=== PATIENT | male | born 1985 | race Caucasian/White ===

== ENCOUNTER → 2018-06-11 | Outpatient (CLI) | payer BC ==
[2015-10-30 08:44] VITALS: BMI 22.4
[~2018-06-11] MED LIST: CHL25 PO; ESCI20TA38 PO; MAGN400T23 PO; MELA3TAB31 PO; MULT-1379 PO; NIC10R INH; PROM-110 PO; [UNRECOGNIZED DRUG - REMARK]
[2018-06-11 17:08] LABS: PLATELET COUNT, AUTOMATED 247 K/uL (150-450)
== END ==
LOC: LAB 16:10
PROVIDERS: ATTEND Emergency Medicine
DX: F10.20 Alcohol dependence, uncomplicated (principal)
CPT/HCPCS: 36415; 80305; 80320; 82040; 82247; 82306; 82310; 82374; 82435; 82565; 82607; 82947; 83735; 84075; 84132; 84155; 84295; 84443; 84450; 84460; 84520; 85025

== ENCOUNTER 2018-09-03 14:55 | Emergency (ER) | payer BC ==
[2015-10-30 08:44] VITALS: Wt 61.7 kg
[~2018-09-03 14:55] MED LIST changes: -CHOL10005 PO; -MULT1CAP59 PO
--- NOTE | 2018-09-03 15:09 | ER Report ---
History and Physical Time Seen By MD: 15:09 HPI/ROS CHIEF COMPLAINT: Seizure HISTORY OF PRESENT ILLNESS: Patient is a 33-year-old male with history of alcoholism here with a 1 minute seizure while at school. Patient denies alcohol abuse reporting that his last alcoholic beverage was over the weekend. Patient reportedly supposed be taking Antabuse. Seizure lasted for approximately 1 minute however he did have a postictal phase and continues to have some confusion regarding the events leading up to the seizure. Patient is afebrile, hemodynamically stable, no nuchal rigidity or meningeal signs present. REVIEW OF SYSTEMS: Constitutional: No fever, no chills. Eyes: No discharge. ENT: No sore throat. Cardiovascular: No chest pain, no palpitations. Respiratory: No cough, no shortness of breath. Gastrointestinal: No abdominal pain, no vomiting. Genitourinary: No hematuria. Musculoskeletal: No back pain. Skin: No rashes. Neurological: + headache and mild confusion. Allergies: Coded Allergies: No Known Drug Allergies (Unverified , 09/03/18) Home Meds Active Scripts Disulfiram (DISULFIRAM) 250 Mg Tablet, 2 TAB PO DAILY, #60 TAB Take 2 tabs daily in the morning for 2 weeks , then 1 daily.Abstain from alcohol for 12 hours before starting. Prov:MYRNA SCHNEIDER MD 07/17/18 Escitalopram Oxalate (LEXAPRO) 20 Mg Tablet, 10 MG PO QDAY, #90 TAB 3 Refills Prov:MYRNA SCHNEIDER MD 07/17/18 Trazodone Hcl (TRAZODONE HCL) 50 Mg Tablet, 0.5-1 MG PO QHS, #30 TAB Prov:MYRNA SCHNEIDER MD 06/27/18 Reported Medications Multivitamin (MULTIVITAMINS) 1 Each Capsule, 1 EACH PO QDAY, CAPSULE 09/03/18 Cholecalciferol (Vitamin D3) (VITAMIN D3) 1,000 Unit Tablet, PO QAM, TAB 09/03/18 Hx Smoking: Yes Smoking Status: Current: Every Day Smoker Exposure to Second Hand Smoke?: Yes Hx Substance Use Disorder: Yes Hx Alcohol Use: Yes Constitutional Vital Sign - Last 24 Hours 09/03/18 09/03/18 09/03/18 09/03/18 14:58 15:00 15:10 15:25 Temp 99.5 Pulse 123 111 113 Resp 20 23 14 B/P (MAP) 136/95 150/80 (103) Pulse Ox 90 88 88 O2 Delivery Room Air 09/03/18 09/03/18 09/03/18 09/03/18 15:30 15:37 15:40 15:55 Pulse 96 102 Resp 19 20 B/P (MAP) 138/81 (100) Pulse Ox 95 98 O2 Flow Rate 2.0 09/03/18 09/03/18 09/03/18 09/03/18 16:00 16:10 16:15 16:45 Pulse 106 101 98 Resp 18 16 19 B/P (MAP) 128/74 (92) Pulse Ox 95 96 100 09/03/18 09/03/18 09/03/18 09/03/18 17:00 17:15 17:30 17:45 Pulse 95 90 89 92 Resp 16 24 17 15 B/P (MAP) 126/78 (94) 137/80 (99) Pulse Ox 98 100 98 99 09/03/18 09/03/18 09/03/18 09/03/18 18:00 18:05 18:20 18:30 Pulse 91 94 87 Resp 13 13 17 B/P (MAP) 134/78 (96) 138/94 (109) Pulse Ox 98 100 99 09/03/18 09/03/18 09/03/18 09/03/18 18:35 18:50 19:00 19:05 Pulse 102 109 90 Resp 33 24 24 B/P (MAP) 142/89 (106) Pulse Ox 88 85 98 09/03/18 09/03/18 09/03/18 19:20 19:30 19:35 Pulse 89 97 Resp 22 21 B/P (MAP) 138/90 (106) Pulse Ox 97 88 Intake and Output 09/03/18 09/03/18 09/04/18 15:00 23:00 07:00 Intake Total 3000 ml Balance 3000 ml Physical Exam General Appearance: The patient is alert, has no immediate need for airway protection and no signs of toxicity. Uncomfortable appearing, mild confusion Eyes: Pupils equal and round no pallor or injection. ENT, Mouth: Mucous membranes are moist. Respiratory: There are no retractions, lungs are clear to auscultation. Cardiovascular: Regular but tachycardic Gastrointestinal: Abdomen is soft and non tender, no masses, bowel sounds normal. Neurological: Mild confusion, moving all extremities spontaneously, no focal neurological deficits on examination, reflexes intact in all extremities Skin: Warm and dry, no rashes. Musculoskeletal: Neck is supple non tender. Extremities are nontender, nonswollen and have full range of motion. DIFFERENTIAL DIAGNOSIS: After history and physical exam differential diagnosis was considered for a seizure including but not limited to electrolyte abnormali ty, alcohol withdrawal, medication noncompliance, head injury, and breakthrough seizure. Medical Decision Making Data Points Result Diagram: 09/03/18 1435 09/03/18 1435 Laboratory Hematology Test 09/03/18 14:35 09/03/18 16:04 09/03/18 16:06 Red Blood Count 4.67 M/uL (4.00-5.60) Mean Corpuscular Volume 105.0 fL (80.0-96.0) Mean Corpuscular Hemoglobin 33.8 pg (26.0-33.0) Mean Corpuscular Hemoglobin Concent 32.2 g/dL (32.0-36.0) Red Cell Distribution Width 15.0 % (11.5-14.5) Mean Platelet Volume 8.4 fL (7.2-11.1) Neutrophils (%) (Auto) 50.5 % (39.4-72.5) Lymphocytes (%) (Auto) 36.9 % (17.6-49.6) Monocytes (%) (Auto) 10.4 % (4.1-12.4) Eosinophils (%) (Auto) 0.8 % (0.4-6.7) Basophils (%) (Auto) 1.4 % (0.3-1.4) Nucleated RBC Relative Count (auto) 0.0 /100WBC Neutrophils # (Auto) 4.8 K/uL (2.0-7.4) Lymphocytes # (Auto) 3.5 K/uL (1.3-3.6) Monocytes # (Auto) 1.0 K/uL (0.3-1.0) Eosinophils # (Auto) 0.1 K/uL (0.0-0.5) Basophils # (Auto) 0.1 K/uL (0.0-0.1) Nucleated RBC Absolute Count (auto) 0.00 K/uL Sodium Level 141 mmol/L (137-145) Potassium Level 3.4 mmol/L (3.5-5.0) Chloride Level 96 mmol/L (98-107) Carbon Dioxide Level 10 mmol/L (22-30) Blood Urea Nitrogen 6 mg/dl (9-21) Creatinine 1.10 mg/dl (0.66-1.25) Glomerular Filtration Rate Calc > 60.0 Random Glucose 132 mg/dl (75-110) Calcium Level 9.4 mg/dl (8.4-10.2) Magnesium Level 1.7 mg/dl (1.7-2.2) Total Bilirubin 0.5 mg/dl (0.2-1.3) Aspartate Amino Transf (AST/SGOT) 245 U/L (0-35) Alanine Aminotransferase (ALT/SGPT) 226 U/L (0-56) Alkaline Phosphatase 82 U/L (0-126) Total Protein 9.2 g/dl (6.3-8.2) Albumin 5.8 g/dl (3.5-5.0) Serum Alcohol 40 mg/dl Urine Opiates Screen Negative Urine Barbiturates Screen Negative Ur Tricyclic Antidepressants Screen Negative Urine Phencyclidine Screen Negative Urine Amphetamines Screen Negative Urine Benzodiazepines Screen Negative Urine Cocaine Screen Negative Urine Cannabinoids Screen Negative Blood Gas Patient Temperature 99.5 DEGREES Venous Blood pH 7.29 (7.31-7.41) Venous Blood Partial Pressure CO2 35 mmHg Venous Blood Partial Pressure O2 49 mmHg Venous Blood HCO3 17 mmol/L Venous Blood Oxygen Saturation 79 % Venous Blood Base Excess -10 mmol/L Oxygen Liters/Minute 2l Lactate 10.5 mmol/L (0.7-2.1) Total Creatine Kinase 350 U/L (55-170) Chemistry Test 09/03/18 14:35 09/03/18 16:04 09/03/18 16:06 White Blood Count 9.5 k/uL (4.5-11.0) Red Blood Count 4.67 M/uL (4.00-5.60) Hemoglobin 15.8 g/dL (14.0-18.0) Hematocrit 49.0 % (42.0-52.0) Mean Corpuscular Volume 105.0 fL (80.0-96.0) Mean Corpuscular Hemoglobin 33.8 pg (26.0-33.0) Mean Corpuscular Hemoglobin Concent 32.2 g/dL (32.0-36.0) Red Cell Distribution Width 15.0 % (11.5-14.5) Platelet Count 311 K/uL (150-450) Mean Platelet Volume 8.4 fL (7.2-11.1) Neutrophils (%) (Auto) 50.5 % (39.4-72.5) Lymphocytes (%) (Auto) 36.9 % (17.6-49.6) Monocytes (%) (Auto) 10.4 % (4.1-12.4) Eosinophils (%) (Auto) 0.8 % (0.4-6.7) Basophils (%) (Auto) 1.4 % (0.3-1.4) Nucleated RBC Relative Count (auto) 0.0 /100WBC Neutrophils # (Auto) 4.8 K/uL (2.0-7.4) Lymphocytes # (Auto) 3.5 K/uL (1.3-3.6) Monocytes # (Auto) 1.0 K/uL (0.3-1.0) Eosinophils # (Auto) 0.1 K/uL (0.0-0.5) Basophils # (Auto) 0.1 K/uL (0.0-0.1) Nucleated RBC Absolute Count (auto) 0.00 K/uL Glomerular Filtration Rate Calc > 60.0 Calcium Level 9.4 mg/dl (8.4-10.2) Magnesium Level 1.7 mg/dl (1.7-2.2) Total Bilirubin 0.5 mg/dl (0.2-1.3) Aspartate Amino Transf (AST/SGOT) 245 U/L (0-35) Alanine Aminotransferase (ALT/SGPT) 226 U/L (0-56) Alkaline Phosphatase 82 U/L (0-126) Total Protein 9.2 g/dl (6.3-8.2) Albumin 5.8 g/dl (3.5-5.0) Serum Alcohol 40 mg/dl Urine Opiates Screen Negative Urine Barbiturates Screen Negative Ur Tricyclic Antidepressants Screen Negative Urine Phencyclidine Screen Negative Urine Amphetamines Screen Negative Urine Benzodiazepines Screen Negative Urine Cocaine Screen Negative Urine Cannabinoids Screen Negative Blood Gas Patient Temperature 99.5 DEGREES Venous Blood pH 7.29 (7.31-7.41) Venous Blood Partial Pressure CO2 35 mmHg Venous Blood Partial Pressure O2 49 mmHg Venous Blood HCO3 17 mmol/L Venous Blood Oxygen Saturation 79 % Venous Blood Base Excess -10 mmol/L Oxygen Liters/Minute 2l Lactate 10.5 mmol/L (0.7-2.1) Total Creatine Kinase 350 U/L (55-170) Toxicology Test 09/03/18 14:35 09/03/18 16:04 Serum Alcohol 40 mg/dl Urine Opiates Screen Negative Urine Barbiturates Screen Negative Ur Tricyclic Antidepressants Screen Negative Urine Phencyclidine Screen Negative Urine Amphetamines Screen Negative Urine Benzodiazepines Screen Negative Urine Cocaine Screen Negative Urine Cannabinoids Screen Negative EKG/Imaging EKG Interpretation PATIENT NAME: BEE VARELA : [id number] MR: [id number] V: [id number] EXAM DATE: ORDERING PHYSICIAN: NOE RODRIGUEZ TECHNOLOGIST: TERRY Young Reason : NEURO Blood Pressure : / mmHG Vent. Rate : 102 BPM Atrial Rate : 102 BPM P-R Int : 136 ms QRS Dur : 078 ms QT Int : 350 ms P-R-T Axes : 069 088 057 degrees QTc Int : 456 ms Sinus tachycardia Otherwise normal ECG When compared with ECG of 30-APR-2015 18:33, Relatively unchanged Confirmed by VITALY ASENCIO ([id number]) on 09/03/2018 4:42:08 PM Referred By: ER Confirmed By:VITALY ASENCIO [id number] T: [facility]/ Imaging PATIENT NAME: Bee Varela : 1985 MR: [id number] V: [id number] EXAM DATE: [id number] ORDERING PHYSICIAN: NOE RODRIGUEZ TECHNOLOGIST: Location: [facility] Patient: Bee Varela : 1985 Visit/Account:[id number] Date of Sevice: 09/03/2018 CT BRAIN WITH AND WITHOUT COMPARISONS: Report from previous exam dated April 30, 2015 ADDITIONAL PERTINENT HISTORY: Seizure activity TECHNIQUE: Multiple axial images were obtained from the skull base to the vertex before and after the IV administration of contrast. One of the following dose optimization techniques was utilized in the performance of this exam: Automated exposure control; adjustment of the mA and/or kV according to the patient's size; or use of an iterative reconstruction technique. Specific details can be referenced in the facility's radiology CT exam operational policy. CONTRAST: 75 ml of Isovue-370 FINDINGS: Midline shift: Negative Ventricles: Negative Brain parenchyma: Negative Extra-axial spaces: Negative Pathologic enhancement: Negative Intracranial vasculature: Negative Osseous structures: Negative Paranasal sinuses and mastoid air cells: Moderate mucosal thickening involving both maxillary sinuses as well as the ethmoid air cells. Surrounding soft tissues and orbits: Negative IMPRESSION: 1. Normal head CT scan with and without contrast. 2. Underlying paranasal sinus disease. ED Course/Re-evaluation ED Course Patient is a 33-year-old male here with complaint of a 1 minute seizure with postictal phase. Seizure was likely caused by alcohol withdrawal as the patient has 40 alcohol level at time of evaluation though he reports that his last alcoholic beverage was over the weekend. Patient was given Ativan, fluid bolus, banana bag with significant improvement in symptoms. Patient requested discharge home with PCP follow-up. Otherwise remarkable for a lactate of 10 likely secondary to seizure activity, craning kinase was 350 and kidney function was intact. Electrolytes were stable, return precautions provided. CT of the head was unremarkable. Decision to Disposition Date: Sep 03, 2018 Decision to Disposition Time: 19:12 Depart Departure Latest Vital Signs Vital Signs Date Time Temp Pulse Resp B/P (MAP) Pulse Ox O2 Delivery O2 Flow Rate FiO2 09/03/18 19:35 97 21 88 09/03/18 19:30 138/90 (106) 09/03/18 15:37 2.0 09/03/18 14:58 99.5 Room Air Impression: Primary Impression: Alcoholism Additional Impression: Seizure Condition: Improved Disposition: HOME OR SELF-CARE Referrals: MYRNA SCHNEIDER MD (PCP) Patient Instructions: Recurrent Seizures in Adults (DC) Additional Instructions: Please drink plenty of water. Please return promptly if you have another seizure. Please consider alcohol cessation. Please return promptly if you develop fevers, chills, nausea, vomiting, headaches, blurry vision, motor weakness Problem Qualifiers NOE RODRIGUEZ DO Sep 03, 2018 15:09
[2018-09-03] MEDS ORDERED: MULT1CAP59 PO (15:13)
[2018-09-03] MEDS ORDERED: CHOL10005 PO (15:13)
[2018-09-03] MEDS ORDERED: NS(*) 0.9% 1000 ML BAG 1,000 ML IV ONE ×2 (15:16→17:00)
[2018-09-03] MEDS ORDERED: THIAMINE HCL(*) 200 MG/2 ML IN 100 MG, FOLIC ACID(*) 50 MG/10 ML INJ 1 MG, MULTIVITAMIN... IV ONE (15:20)
[2018-09-03] MEDS ORDERED: LORazepam 2 MG/ML VIAL IVP ONE (15:20)
--- NOTE | 2018-09-03 15:31 | EKG ---
FACILITY: [facility] [place] PATIENT NAME: BEE VARELA : [id number] MR: [id number] V: [id number] EXAM DATE: ORDERING PHYSICIAN: NOE RODRIGUEZ TECHNOLOGIST: TERRY Young Reason : NEURO Blood Pressure : / mmHG Vent. Rate : 102 BPM Atrial Rate : 102 BPM P-R Int : 136 ms QRS Dur : 078 ms QT Int : 350 ms P-R-T Axes : 069 088 057 degrees QTc Int : 456 ms Sinus tachycardia Otherwise normal ECG When compared with ECG of 30-APR-2015 18:33, Relatively unchanged Confirmed by VITALY ASENCIO ([id number]) on 09/03/2018 4:42:08 PM Referred By: ER Confirmed By:VITALY ASENCIO
[2018-09-03 15:33] LABS: PLATELET COUNT, AUTOMATED 311 K/uL (150-450)
[2018-09-03] MEDS ORDERED: IOPAMIDOL 76% 150 ML INFUS BTL 150 ML ONE (15:52)
--- NOTE | 2018-09-03 16:58 | RADIOLOGY IMAGING REPORT ---
FACILITY: [facility] PATIENT NAME: Silvestre Gill : 1985 MR: [id number] V: [id number] EXAM DATE: ORDERING PHYSICIAN: NOE RODRIGUEZ TECHNOLOGIST: Location: [facility] [place] Patient: Silvestre Gill : 1985 Visit/Account:[id number] Date of Sevice: 09/03/2018 CT BRAIN WITH AND WITHOUT COMPARISONS: Report from previous exam dated April 30, 2015 ADDITIONAL PERTINENT HISTORY: Seizure activity TECHNIQUE: Multiple axial images were obtained from the skull base to the vertex before and after th e IV administration of contrast. One of the following dose optimization techniques was utilized in t he performance of this exam: Automated exposure control; adjustment of the mA and/or kV according to the patient's size; or use of an iterative reconstruction technique. Specific details can be refere nced in the facility's radiology CT exam operational policy. CONTRAST: 75 ml of Isovue-370 FINDINGS: Midline shift: Negative Ventricles: Negative Brain parenchyma: Negative Extra-axial spaces: Negative Pathologic enhancement: Negative Intracranial vasculature: Negative Osseous structures: Negative Paranasal sinuses and mastoid air cells: Moderate mucosal thickening involving both maxillary sinuse s as well as the ethmoid air cells. Surrounding soft tissues and orbits: Negative IMPRESSION: 1. Normal head CT scan with and without contrast. 2. Underlying paranasal sinus disease. Report Dictated By: Jad Silverio MD at 09/03/2018 4:50 PM Report E-Signed By: Jad Silverio MD at 09/03/2018 4:54 PM [id number]
[2018-09-03 19:30] VITALS: BP 138/90
== END 2018-09-03 19:48 | disposition home or self-care (01) ==
LOC: ER 15:28
DX: F10.20 Alcohol dependence, uncomplicated (principal); Y90.2 Blood alcohol level of 40-59 mg/100 ml; R56.9 Unspecified convulsions
CPT/HCPCS: 70470; 80305; 80320; 82550; 82803; 83605; 83735; 85025; 93005; 96361; 96365; 96375; 99284; J2060; J3411; J7030; Q9967; 82040; 82247; 82310; 82374; 82435; 82565; 82947; 84075; 84132; 84155; 84295; 84450; 84460; 84520

== ENCOUNTER → 2018-09-03 | Outpatient (CLI) | payer BC ==
[2015-10-30 08:44] VITALS: BMI 22.4
[~2018-09-03] MED LIST changes: +CHOL10005 PO; +DISU250T5 PO; +MULT1CAP59 PO; +TRAZ50TA34 PO
== END ==
LOC: AMB 14:27
PROVIDERS: ATTEND Nurse Practitioner
DX: R56.9 Unspecified convulsions (principal)
CPT/HCPCS: A0425; A0427

== ENCOUNTER 2018-12-03 20:21 | Inpatient (IN) | payer BC ==
[2015-10-30 08:44] VITALS: Ht 172.7 cm; Wt 61.7 kg
[~2018-12-03] VITALS: Ht 172.7 cm; Wt 61.7 kg
[~2018-12-03 20:21] MED LIST changes: +CHOL10005 PO; +MULT1CAP59 PO; -TRAZ50TA34 PO; +TRAZ50TA52 PO
[2018-12-03] MEDS ORDERED: ONDANSETRON 4 MG/2 ML VIAL ONE (20:37)
[2018-12-03] MEDS ORDERED: ONDANSETRON 4 MG/2 ML VIAL IVP ONE (20:45)
[2018-12-03] MEDS ORDERED: NS(*) 0.9% 1000 ML BAG 1,000 ML IV ONE (21:05)
[2018-12-03] MEDS ORDERED: FLUORESCEIN SOD 1 MG 1 EA STRP ONE (21:21)
[2018-12-03] MEDS ORDERED: THIAMINE HCL(*) 200 MG/2 ML IN 100 MG, FOLIC ACID(*) 50 MG/10 ML INJ 1 MG, MULTIVITAMIN... IV ONE (21:36)
--- NOTE | 2018-12-03 21:39 | ER Report ---
History and Physical Time Seen By MD: 20:50 Hx. of Stated Complaint: been drinking a lot of vodka all day. fell into a danna-nak stand, cut rt ear on a cat statue, glass fell out of ear. rt eye red, might have something in it (KURTIS KNOTT DO) Time Seen By MD: 07:00 (NOE RODRIGUEZ DO) HPI/ROS CHIEF COMPLAINT: Heavy alcohol usage, fall and head trauma HISTORY OF PRESENT ILLNESS: Patient presents after falling and hitting his head REVIEW OF SYSTEMS: Constitutional: [No fever, no chills.] Eyes: [No discharge.] ENT: [No sore throat.] Cardiovascular: [No chest pain, no palpitations.] Respiratory: [No cough, no shortness of breath.] Gastrointestinal: [No abdominal pain, no vomiting.] Genitourinary: [No hematuria.] Musculoskeletal: [No back pain.] Skin: [No rashes.] Neurological: [No headache.] Remainder of the 14 system rev: Yes (KURTIS KNOTT DO) HPI/ROS Please see Dr. Knott's note (NOE RODRIGUEZ DO) Allergies: Coded Allergies: No Known Drug Allergies (Unverified , 12/03/18) Home Meds Active Scripts Disulfiram (DISULFIRAM) 250 Mg Tablet, 2 TAB PO DAILY, #60 TAB Take 2 tabs daily in the morning for 2 weeks , then 1 daily.Abstain from alcohol for 12 hours before starting. Prov:MYRNA SCHNEIDER MD 07/17/18 Escitalopram Oxalate (LEXAPRO) 20 Mg Tablet, 10 MG PO QDAY, #90 TAB 3 Refills Prov:MYRNA SCHNEIDER MD 07/17/18 Trazodone Hcl (TRAZODONE HCL) 50 Mg Tablet, 0.5-1 MG PO QHS, #30 TAB Prov:MYRNA SCHNEIDER MD 06/27/18 Reported Medications Multivitamin (MULTIVITAMINS) 1 Each Capsule, 1 EACH PO QDAY, CAPSULE 09/03/18 Cholecalciferol (Vitamin D3) (VITAMIN D3) 1,000 Unit Tablet, PO QAM, TAB 09/03/18 Unable To Obtain Past Medical: Unable to Obtain/Update (KURTIS KNOTT DO) Reviewed Nurses Notes: Yes (KURTIS KNOTT DO) Hx Smoking: Yes Smoking Status: Current: Every Day Smoker Exposure to Second Hand Smoke?: Yes Hx Substance Use Disorder: Yes Hx Alcohol Use: Yes (KURTIS KNOTT DO) Constitutional Vital Sign - Last 24 Hours 12/03/18 12/03/18 12/03/18 12/03/18 20:32 20:48 20:51 21:00 Temp 98.3 Pulse 120 107 Resp 16 B/P (MAP) 165/100 125/101 (109) 133/100 (111) Pulse Ox 93 89 O2 Delivery Room Air 12/03/18 12/03/18 12/03/18 12/03/18 21:30 22:14 22:19 23:19 Pulse ??? 95 B/P (MAP) 148/101 (117) 137/97 (110) Pulse Ox 85 12/03/18 12/03/18 12/03/18 12/03/18 23:24 23:34 23:39 23:54 Pulse 89 90 92 Pulse Ox 92 92 92 O2 Flow Rate 2.0 12/04/18 12/04/18 12/04/18 12/04/18 00:09 00:24 00:54 01:09 Pulse 95 93 ??? 91 Pulse Ox 94 94 90 12/04/18 12/04/18 12/04/18 12/04/18 01:24 01:29 01:44 01:59 Pulse ??? 86 85 83 Pulse Ox 93 98 96 12/04/18 12/04/18 12/04/18 12/04/18 02:04 02:34 02:49 03:04 Pulse 78 81 77 85 Pulse Ox 96 96 96 12/04/18 12/04/18 12/04/18 12/04/18 03:19 03:34 03:49 03:54 Pulse 88 79 82 76 Pulse Ox 97 97 97 97 12/04/18 12/04/18 12/04/18 12/04/18 04:09 04:24 04:39 04:54 Pulse 73 84 69 74 Pulse Ox 97 97 97 97 12/04/18 12/04/18 12/04/18 12/04/18 04:59 05:14 05:29 05:44 Pulse 77 78 79 ??? Pulse Ox 97 97 97 12/04/18 05:59 Pulse 78 Pulse Ox 91 Intake and Output 7/12/03/18 12/04/18 15:03 23:03 07:03 Intake Total 1000 ml 1000 ml Balance 1000 ml 1000 ml (NOE RODRIGUEZ DO) Physical Exam General Appearance: Patient very drunk, disheveled, unable to care for self Eyes: Pupils equal and round no pallor or injection. Bilateral injected conjunctiva, right subconjunctival hemorrhage. Right periorbital ecchymosis ENT, Mouth: Mucous membranes are moist. The right ear has blood in it, at least 2 lacerations noted at 4:00 and 9:00 in the external auditory canal with scant oozing of blood. Tympanic membrane is intact. Respiratory: There are no retractions, lungs are clear to auscultation. Cardiovascular: Regular rate and rhythm. Pulses equal throughout the extremities Gastrointestinal: Abdomen is soft and non tender, no masses, bowel sounds normal. Neurological: Patient very intoxicated, moves all 4 extremities, no obvious cranial nerve deficit Skin: Warm and dry, no rashes. Lacerations in the ear canal as described above. Musculoskeletal: Neck is supple non tender. Extremities are nontender, nonswollen and have full range of motion. DIFFERENTIAL DIAGNOSIS: After history and physical exam differential diagnosis was considered for a laceration versus basilar skull fracture versus alcohol intoxication versus TBI versus subconjunctival hemorrhage versus corneal foreign body (KURTIS KNOTT DO) Physical Exam Please see Dr. Knott's note (NOE RODRIGUEZ DO) Medical Decision Making Data Points Result Diagram: 12/03/18203512/03/182035 Laboratory Hematology Test 12/03/18 20:36 White Blood Count 7.9 k/uL (4.5-11.0) Red Blood Count 5.24 M/uL (4.00-5.60) Hemoglobin 17.8 g/dL (14.0-18.0) Hematocrit 51.9 % (42.0-52.0) Mean Corpuscular Volume 99.2 fL (80.0-96.0) H Mean Corpuscular Hemoglobin 34.0 pg (26.0-33.0) H Mean Corpuscular Hemoglobin Concent 34.3 g/dL (32.0-36.0) Red Cell Distribution Width 13.0 % (11.5-14.5) Platelet Count 214 K/uL (150-450) Mean Platelet Volume 9.3 fL (7.2-11.1) Neutrophils (%) (Auto) 58.7 % (39.4-72.5) Lymphocytes (%) (Auto) 31.3 % (17.6-49.6) Monocytes (%) (Auto) 6.3 % (4.1-12.4) Eosinophils (%) (Auto) 2.0 % (0.4-6.7) Basophils (%) (Auto) 1.7 % (0.3-1.4) H Nucleated RBC Relative Count (auto) 0.1 /100WBC Neutrophils # (Auto) 4.6 K/uL (2.0-7.4) Lymphocytes # (Auto) 2.5 K/uL (1.3-3.6) Monocytes # (Auto) 0.5 K/uL (0.3-1.0) Eosinophils # (Auto) 0.2 K/uL (0.0-0.5) Basophils # (Auto) 0.1 K/uL (0.0-0.1) Nucleated RBC Absolute Count (auto) 0.01 K/uL Chemistry Test 12/03/18 20:36 Sodium Level 143 mmol/L (137-145) Potassium Level 3.8 mmol/L (3.5-5.0) Chloride Level 98 mmol/L (98-107) Carbon Dioxide Level 23 mmol/L (22-30) Blood Urea Nitrogen 6 mg/dl (9-21) Creatinine 1.10 mg/dl (0.66-1.25) Glomerular Filtration Rate Calc > 60.0 Random Glucose 146 mg/dl (75-110) Calcium Level 8.9 mg/dl (8.4-10.2) Magnesium Level 1.9 mg/dl (1.7-2.2) Total Bilirubin 0.6 mg/dl (0.2-1.3) Aspartate Amino Transf (AST/SGOT) 141 U/L (0-35) Alanine Aminotransferase (ALT/SGPT) 85 U/L (0-56) Alkaline Phosphatase 91 U/L (0-126) Total Protein 9.0 g/dl (6.3-8.2) Albumin 5.2 g/dl (3.5-5.0) Toxicology Test 12/03/18 20:36 12/03/18 22:09 Salicylates Level < 10 mg/L Salicylate Last Dose Date unk Acetaminophen Level < 10 ug/ml Serum Alcohol 509 mg/dl Urine Opiates Screen Negative Urine Barbiturates Screen Negative Ur Tricyclic Antidepressants Screen Negative Urine Phencyclidine Screen Negative Urine Amphetamines Screen Negative Urine Benzodiazepines Screen Negative Urine Cocaine Screen Negative Urine Cannabinoids Screen Negative Urinalysis Test 12/03/18 22:09 Urine Color Straw Urine Clarity Clear Urine pH 6.0 pH (4.8-9.5) Urine Specific [place] 1.003 Urine Protein 30 mg/dL (NEGATIVE) Urine Glucose (UA) Negative mg/dL (NEGATIVE) Urine Ketones Negative mg/dL (NEGATIVE) Urine Blood Small (NEGATIVE) Urine Nitrite Negative (NEGATIVE) Urine Bilirubin Negative (NEGATIVE) Urine Urobilinogen Negative mg/dL (0.2-1.9) Urine Leukocyte Esterase Negative (NEGATIVE) Urine RBC <1 /HPF (0-2/HPF) Urine WBC <1 /HPF (0-5/HPF) Urine Squamous Epithelial Cells None /LPF (</=FEW) Urine Bacteria Few /HPF (NONE-FEW) Urine Mucus None /HPF (NONE-FEW) (NOE RODRIGUEZ DO) ED Course/Re-evaluation ED Course Patient's mechanism overall is not concerning for internal cranial injury. His lacerations cannot be repaired with a continued it is so lidocaine with epinephrine gauze was placed in the eardrum to attempt to achieve hemostasis. La bwork sent. The patient does want help with quitting drinking. Labwork sent. IV fluids. IV banana bag. Re-evaluation Patient reevaluated multiple times. His right ear stop bleeding. He has no new complaints. He is becoming more sober but still somewhat intoxicated. Patient is signed out to the oncoming provider for evaluation by psychiatry and final disposition. (KURTIS KNOTT DO) ED Course I assumed patient care from Dr. Knott at 700 at shift change. Patient was accepted to behavioral health services in stable condition. Patient was given Ativan, Zofran for symptom management. Patient signed in voluntarily. Decision to Disposition Date: Dec 04, 2018 Decision to Disposition Time: 08:25 (NOE RODRIGUEZ DO) Depart Departure Latest Vital Signs Vital Signs Date Time Temp Pulse Resp B/P (MAP) Pulse Ox O2 Delivery O2 Flow Rate FiO2 7/30/19 05:59 78 91 12/03/18 23:24 2.0 12/03/18 22:14 137/97 (110) 12/03/18 20:32 98.3 16 Room Air (NOE RODRIGUEZ DO) Impression: Primary Impression: Alcoholism Condition: Improved Disposition: XFER TO [facility] Referrals: MYRNA SCHNEIDER MD (PCP) KURTIS KNOTT DO Dec 03, 2018 21:39 NOE RODRIGUEZ DO Dec 04, 2018 07:29
[2018-12-03] MEDS ORDERED: METOCLOPRAMIDE 10 MG/2 ML SDV IVP ONE (21:45)
[2018-12-03] MEDS ORDERED: diphenhydrAMINE 50 MG/ML VIAL IVP ONE (21:45)
[2018-12-03 21:57] LABS: PLATELET COUNT, AUTOMATED 214 K/uL (150-450)
[2018-12-04] MEDS ORDERED: ONDANSETRON 4 MG/2 ML VIAL IVP ONE (08:25)
[2018-12-04] MEDS ORDERED: LORazepam 2 MG/ML VIAL IVP ONE (08:25)
[2018-12-04] MEDS ORDERED: LORazepam 1 MG TAB PO ONE (10:20)
[2018-12-04 11:34] VITALS: BP 130/82
[2018-12-04] MEDS ORDERED: MAG HYD/AL HYD/SIMETH 30ML UDC PO PRN (11:35)
[2018-12-04 11:40] VITALS: BP 130/82
[2018-12-04] MEDS: DIAZEPAM 10 MG TAB PO PRN ×4 (11:50→22:11)
[2018-12-04] MEDS ORDERED: NICOTINE POLACRILEX 4 MG LOZG PO PRN (12:05)
[2018-12-04 14:55] VITALS: BP 118/88
[2018-12-04 19:39] VITALS: BP 142/91
[2018-12-04 22:00] VITALS: BP 150/85
[2018-12-05] MEDS: DIAZEPAM 10 MG TAB PO PRN ×5 (01:04→23:57)
[2018-12-05 01:25] VITALS: BP 127/87
[2018-12-05 06:05] VITALS: BP 125/79
[2018-12-05] MEDS: MULTIVITAMINS TAB PO SCH (07:59)
[2018-12-05] MEDS: THIAMINE HCL 100 MG TAB PO SCH (07:59)
[2018-12-05] MEDS: FOLIC ACID 1 MG TAB PO SCH (07:59)
[2018-12-05] MEDS ORDERED: THIAMINE HCL 200 MG/2 ML INJ IM SCH (09:00)
[2018-12-05 10:30] VITALS: BP 126/85
[2018-12-05 15:15] VITALS: BP 149/97
[2018-12-05 18:16] VITALS: BP 152/88
[2018-12-06 06:32] VITALS: BP 132/91
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
[2018-12-06] MEDS: MULTIVITAMINS TAB PO SCH (08:28)
[2018-12-06] MEDS: FOLIC ACID 1 MG TAB PO SCH (08:28)
[2018-12-06] MEDS: THIAMINE HCL 100 MG TAB PO SCH (08:28)
[2018-12-06 10:02] VITALS: BP 140/81
--- NOTE | 2018-12-06 11:23 | BHS Progress Note ---
[facility] - Subjective Progress Notes Subjective Patient slowly improving, alcohol withdrawal ongoing, Patient cooperative and taking an active role in his treatment. Will plan for discharge on Monday, at this point. Patient reports feeling much better today with improved mood. No other concerns. Suicidal Ideation: None Homicidal Ideation: None [facility] - Objective Physical Exam Vital Signs Vital Signs Date Time Temp Pulse Resp B/P (MAP) Pulse Ox O2 Delivery O2 Flow Rate FiO2 12/06/18 10:02 98.7 88 16 140/81 (100) 96 Room Air 12/04/18 22:00 2.0 Muscle Strength and Tone: WNL Gait and Station: Steady [facility] Medications Reviewed: Side Effects, Benefits of Medication, Risks Allergies Reviewed: Yes Mental Status Exam General Appearance: Casual, Good Eye Contact, Cooperative, Polite, Good Interaction; No Tearful, No Psychomotor Agitation; Psychomotor Retardation; No Bizarre Mannerisms, No Tics Speech: Clear, Spontaneous; No Normal Rate; Normal Rhythm; No Normal Volume; Normal Tone, Delayed; No Garbled, No Rambling, No Inappropriate Mood: Euthymic (improved mood today) Affect: Full and Appropriate; No Tearful, No Anxious, No Agitated Thought Process: Organized, Logical, Goal Directed; No Loose Associations, No Flight of Ideas Thought Content: No Suicidal Ideation, No Homicidal Ideation, No Delusions, No Auditory Halllucinations, No Visual Hallucinations, No Thought Broadcasting, No Ideas of Reference, No Obsessions, No Compulsions Sensorium: Clear Cognition: Alert & Oriented-Person, Alert & Oriented-Place, Alert & Oriented- Time, Kores-Jeyaqkwd-Cdeqeflfo Memory: Immediate, Recent, Remote Intelligence: Average Insight Judgment: Fair (improving in absence of alcohol) Result Diagram: 12/03/18203512/03/182035 [facility] Assessment and Plan Mupr-[id number] Encounter Date: Dec 06, 2018 [id number] Encounter Time: 11:00 [facility] Plan: Necessary Precautions, Individual/Group Therapy, Admin/Titrate Meds, Educate Patient Multpiple Antipsychotics Used: No Problems: (1) Alcohol withdrawal Status: Acute (2) Alcohol use disorder, severe, dependence Optional Permanent Comment: history of potential PTSD and TBI Last Edited By: Rocio Arzola on Dec 06, 2018 11:22 Status: Chronic Condition 1. continue treatment. 2. solidify plan to promote abstinence upon discharge. 3. Likely discharge on Monday based upon expected course of treatment. Problem Qualifiers (1) Alcohol withdrawal: Complication of substance-induced condition: uncomplicated Qualified Codes: F10.230 - Alcohol dependence with withdrawal, uncomplicated ROCIO ARZOLA MD Dec 06, 2018 11:23
[2018-12-06 15:45] VITALS: BP 123/89
[2018-12-06 18:24] VITALS: BP 121/99
[2018-12-06] MEDS: DIAZEPAM 10 MG TAB PO PRN (20:33)
[2018-12-06 20:57] VITALS: BP 142/96
[2018-12-07 05:00] VITALS: BP 125/91
[2018-12-07] MEDS: THIAMINE HCL 100 MG TAB PO SCH (08:19)
[2018-12-07] MEDS: FOLIC ACID 1 MG TAB PO SCH (08:19)
[2018-12-07] MEDS: MULTIVITAMINS TAB PO SCH (08:19)
[2018-12-07 11:00] VITALS: BP 122/90
[2018-12-07] MEDS ORDERED: FOLI-68 PO (11:14)
[2018-12-07] MEDS ORDERED: MULT-859 PO (11:15)
[2018-12-07] MEDS ORDERED: THIA100T2 PO (11:15)
[2018-12-07] MEDS ORDERED: NICO4LOZ35 BC (11:16)
--- NOTE | 2018-12-08 08:14 | SCHAAF DISCHARGE ---
DATE OF ADMISSION: December 04, 2018 DATE OF DISCHARGE: December 07, 2018 Patient was seen at approximately 1000 hours on the a.m. of December 07, 2018 for note concerning this dictation. ATTENDING PHYSICIAN Carlito Chan MD FINAL DIAGNOSES 1. Alcohol use disorder, severe. 2. Alcohol withdrawal, considered complete. 3. Rule out posttraumatic stress disorder. 4. Rule out traumatic brain injury. 5. Patient will [facility]. 6. Strong family support. REASON FOR ADMISSION This is a very polite 33-year-old male who was last on the Unit in the summer of 2015 under similar circumstances. Patient returns in a state of severe alcohol intoxication and encouraged by his family after witnessing a fall the patient had in the home. Patient was then treated in the ER for minor cuts secondary to a fall on a table. Patient was cleared, brought to the Behavioral Health Unit, where alcohol withdrawal was treated to completion via diazepam per [facility] protocol. Patient's alcohol use disorder again is considered severe and alcohol withdrawal is considered significant in nature. Patient's mood improved, sleep improved, appetite improved. Patient not currently on any outpatient medication. He will review these with [facility] providers upon discharge. PHYSICAL EXAMINATION Please see emergency room note. Notable for critically intoxicated 33-year old male, some minor cuts and scrapes around right ear and right eye secondary to fall. Vital signs at the time of admission: Temperature 98.3, pulse 120, respiratory rate 16, blood pressure 165/100 and pulse oximetry 93% on room air. Vital signs at the time of discharge: Temperature 98.2, pulse 57, respiratory rate 16, blood pressure 125/91 and pulse oximetry 95% on room air. LABORATORY DATA CBC notable for MCV elevated at 99.2, MCH 34.0 and elevated chemistry panel notable for random glucose elevated slightly at 146, AST 141 and ALT 85. TSH 2.87, in normal range. Urinalysis did show small urine blood and some urine protein present. Otherwise, unremarkable. Negative toxicology screen with the exception of serum alcohol critically high at 509 upon admission. MENTAL STATUS EXAMINATION GENERAL APPEARANCE, BEHAVIOR AND ATTITUDE: This is very pleasant 33-year-old male. No psychomotor agitation or retardation. No bizarre mannerisms or tics. P Patient making good eye contact, calm, cooperative. SPEECH: Within normal limits. Regular rate, rhythm, volume and tone. MOOD: Described as improved and good. AFFECT: Full and mood-congruent. THOUGHT PROCESSES: Goal-directed, logical. No loose associations or flight of ideas. THOUGHT CONTENT: Free of auditory or visual hallucinations, ideas of reference, thought broadcastings, delusions, obsessions or compulsions. Patient adamantly denying suicidal or homicidal ideation. SENSORIUM: Clear. COGNITION: Alert and oriented to person, place, time and situation. MEMORY: Immediate, recent and remote estimated intact. INTELLIGENCE: Average, based on interview. INSIGHT AND JUDGMENT: Considered grossly intact in the absence of alcohol use. RESULTS OF TESTING Imaging: None. Laboratory data: See above. CONSULTATIONS None. TREATMENT Patient received medications, participated in individual and group therapy. HOSPITAL COURSE Alcohol withdrawal was focus of treatment during this patient's stay. Alcohol withdrawal considered significant treated to completion with diazepam via [facility] protocol. Patient agreed to follow[facility] with the [facility], would go to AA and obtain a sponsor for any underlying concerns. CONDITION OF PATIENT ON DISCHARGE Stable. Considered a minimal risk to himself or others and appropriate for outpatient care. DISPOSITION The patient was discharged to home. Followup with AA and obtain a sponsor. Patient agreed to abstain from all alcohol. Followup with the [facility] as well concerning any underlying condition. Crisis Line was given should symptoms return. Discharge medications included folic acid 1 mg daily, vitamin D1 100 mg daily and multivitamin with minerals daily. Patient could remain on vitamin D3 as well that patient has been taking at home. The risks, benefits and alternatives of the above discharge plan were discussed. Informed consent was given to proceed with the above discharge plan by this competent patient and patient's present at time of discharge. GRACIELA
== END 2018-12-07 13:00 | disposition home or self-care (01) | DRG 897 ==
LOC: ER 20:52 → BHS 12-04 11:23
PROVIDERS: ADMIT Psychiatry & Neurology Psychiatry; ATTEND Psychiatry & Neurology Psychiatry
DX: F10.230 Alcohol dependence with withdrawal, uncomplicated (principal); F17.210 Nicotine dependence, cigarettes, uncomplicated; F43.12 Post-traumatic stress disorder, chronic; Y90.8 Blood alcohol level of 240 mg/100 ml or more; Z87.820 Personal history of traumatic brain injury; Z62.810 Personal history of physical and sexual abuse in childhood; Z81.1 Family history of alcohol abuse and dependence
CPT/HCPCS: 80305; 80320; 80329; 81001; 82040; 82247; 82310; 82374; 82435; 82565; 82947; 83735; 84075; 84132; 84155; 84295; 84443; 84450; 84460; 84520; 85025; J1200; J2060; J2405; J2765; J3411; J3475; J7030